=== PATIENT | female | born 1980 | race Caucasian/White ===

== ENCOUNTER 2019-09-26 10:59 | Day surgery (SDC) | payer OTHER ==
[~2019-09-26] VITALS: Ht 157.5 cm; Wt 93.9 kg
[2019-09-26 12:00] LABS: HCG,QUAL RESULT NEGATIVE (NEGATIVE)
[2019-09-26] MEDS ORDERED: SEVOFLURANE 15 MIN GAS INH ONE (13:00)
[2019-09-26] MEDS ORDERED: CEFAZOLIN 2 GM IVPB PREMIX 50 ML IV ONE (13:00)
[2019-09-26] MEDS ORDERED: fentaNYL CITRATE/PF 100 MCG/2 ML AMP IVP ONE (13:00)
[2019-09-26] MEDS ORDERED: ONDANSETRON HCL 4 MG/2 ML VIAL IVP ONE (13:00)
[2019-09-26] MEDS ORDERED: PROPOFOL 200MG/ 20ML VIAL (DIPRIVAN) IV ONE (13:00)
[2019-09-26] MEDS ORDERED: MIDAZOLAM HCL 5 MG/5 ML VIAL IVP ONE (13:00)
[2019-09-26] MEDS ORDERED: NS 1000 ML IV.SOLN IV ONE (13:00)
[2019-09-26] MEDS ORDERED: NS IRRIG SOLN 1000 ML IR ONE (13:00)
[2019-09-26] MEDS ORDERED: fentaNYL CITRATE/PF 100 MCG/2 ML AMP IVP PRN ×2 (13:45)
[2019-09-26] MEDS ORDERED: ONDANSETRON HCL 4 MG/2 ML VIAL IVP PRN ×2 (13:45→16:45)
[2019-09-26] MEDS ORDERED: KETOROLAC TROMETHAMINE 30 MG VIAL IVP PRN (13:45)
[2019-09-26] MEDS ORDERED: KETOROLAC TROMETHAMINE 30 MG VIAL ONE (14:42)
[2019-09-26 16:00] VITALS: BP_SYST 119
== END 2019-09-26 15:50 | disposition home or self-care (01) ==
LOC: SDS 10:59 → SMU 11:02 → SDS 15:50
PROVIDERS: ATTEND Specialist
DX: N92.1 Excessive and frequent menstruation with irregular cycle (principal); N84.0 Polyp of corpus uteri
CPT/HCPCS: 36415; 58558; 84703; 86886; 86900; 86901; 88305; J0690; J1885; J2250; J2405; J2704; J3010; J7030; J7120